=== PATIENT | male | born 1940 | race Caucasian/White ===

== ENCOUNTER 2022-02-27 17:23 | Emergency (ER) | payer BC, SELFPAY ==
[2022-02-27 17:31] VITALS: BP 153/95; PULSE 109; RESP 22; TEMP 36.4; O2SAT 94; BMI 27.8
--- NOTE | 2022-02-27 17:42 | ED.NURSE ---
did place #16 fr salazar catheter and had egress of 750 ml of urine. was obviously uncomfortable and was unable to sit. relief after the catheter was placed..
--- NOTE | 2022-02-27 17:52 | ED_ITS ---
HPI - Male Genitourinary General Chief complaint: Urogenital Problems, Male Stated complaint: Needs to pee but can't Time Seen by Provider: 02/27/22 17:42 History of Present Illness HPI Narrative: This 81-year-old male comes in with acute urinary retention. He was driving with his from [place] to visit his daughter in [facility]. He had difficulty passing urine at about noon today, 6 hours prior to arrival. Since then he has had frequent urges to pass urine but was unable to do so. He comes in with acute urinary retention and states that this is not happened in the past except when he was coming out of a shoulder surgery anesthesia. Related Data Home Medications Medication Instructions Recorded Confirmed acetaminophen 500 mg tablet 1,000 mg PO Q4H PRN 02/27/22 02/27/22 (Tylenol Extra Strength) amlodipine 5 mg tablet 5 mg PO DAILY 02/27/22 02/27/22 apixaban 5 mg tablet (Eliquis) 5 mg PO BID 02/27/22 02/27/22 aspirin 81 mg tablet,delayed 81 mg PO DAILY 02/27/22 02/27/22 release atorvastatin 40 mg tablet 40 mg PO DAILY 02/27/22 02/27/22 calcium carbonate 600 mg calcium 600 mg PO DAILY 02/27/22 02/27/22 (1,500 mg) tablet (Calcium) cetirizine 10 mg capsule (All Day 10 mg PO DAILY PRN 02/27/22 02/27/22 Allergy (cetirizine)) ezetimibe 10 mg tablet 10 mg PO DAILY 02/27/22 02/27/22 fluticasone fur. 200 mcg-umeclid 1 inh inhalation DAILY 02/27/22 02/27/22 62.5 mcg-vilant 25 mcg inhalat.powder (Trelegy Ellipta) fluticasone propionate 50 1 spray intranasal DAILY PRN 02/27/22 02/27/22 mcg/actuation nasal spray,suspension (Flonase Allergy Relief) metoprolol tartrate 75 mg tablet 75 mg PO DAILY 02/27/22 02/27/22 nitroglycerin 0.4 mg sublingual 0.4 mg sublingual Q5-15M PRN 02/27/22 02/27/22 tablet omeprazole 20 mg tablet,delayed 20 mg PO DAILY 02/27/22 02/27/22 release tamsulosin 0.4 mg capsule (Flomax) 0.4 mg PO DAILY 02/27/22 02/27/22 Allergies Allergy/AdvReac Type Severity Reaction Status Date / Time lisinopril Allergy Verified 02/27/22 17:36 Penicillins Allergy Verified 02/27/22 17:36 Review of Systems Status of ROS: Reports: 10 or more systems reviewed and unremarkable except as noted in History and below Narrative: Constitutional: No fevers, no weight gain or loss. Eyes: No discharge. No vision changes. HENT: He does report some nasal congestion and occasional cough. Cardiovascular: No chest pain, no palpitations. Respiratory: No shortness of breath, no wheezes, no cough. Gastrointestinal: No abdominal pain, no vomiting, no diarrhea. Genitourinary: Urinary retention as described above. Musculoskeletal: Normal range of motion. Skin: No rashes, no pruritis. Neurological: No dizziness, weakness, sensory change, speech change. Endo/Heme/Allergies: No bruising or bleeding. No polydipsia. Pysch: no suicidality, no anxiety, no insomnia. All other systems reviewed and are negative. PFSH PFS Social History Smoking Status: Former smoker Do you use any of these nicotine containing products: None Second hand tobacco smoke exposure: No How often do you have a drink containing alcohol: 4 or more times a week How many standard drinks containing alcohol do you have on a typical day: 1 or 2 How often do you have six or more drinks on one occasion: Never AUDIT-C Alcohol total score: 4 Non-prescribed substance use: denies use Exam Narrative: Exam Narrative: Constitutional: Well-developed, well-nourished, no acute distress. HEENT: Normocephalic, atraumatic. Neck: Normal range of motion. Nontender. Supple. Heart: Regular. No murmurs. Normal rate. Intact distal pulses. Lungs: Clear to auscultation. No chest discomfort. No wheezes, rhonchi, or rales. Abdomen: Normal bowel sounds. Distended in the lower abdomen. Mild tenderness. No rebound tenderness. Genitalia: Deferred. Back: No midline tenderness. Normal range of motion. Extremities: Normal range of motion. No injury. Skin: Intact. No rash. Warm. No erythema or pallor. Neurologic: No altered sensation. No weakness. Alert and oriented. Psychiatric: No suicidality. No anxiety or depression. No insomnia. Nursing notes and vitals signs are reviewed. Const: Vital Signs, click to edit/add: Vital Signs - 24 hr 02/27/22 17:31 Temperature 97.6 F Pulse Rate [Pulse Oximeter] 109 H Respiratory Rate 22 Blood Pressure [Ri ght Upper Arm] 153/95 H Pulse Oximetry 94 Oxygen Delivery Me thod Room Air Course Vital Signs Vital signs: Initial Vital Signs Temperature 97.6 F 02/27/22 17:31 Temperature Source Temporal Artery Scan 02/27/22 17:31 Pulse Rate 109 H 02/27/22 17:31 Pulse Rhythm 02/27/22 17:31 Respiratory Rate 22 02/27/22 17:31 Blood Pressure 153/95 H 02/27/22 17:31 Blood Pressure Mean 114 02/27/22 17:31 Blood Pressure Position Standing 02/27/22 17:31 Pulse Oximetry 94 02/27/22 17:31 Oxygen Delivery Method 02/27/22 17:31 Vital Signs Temperature 97.6 F 02/27/22 17:31 Pulse Rate 109 H 02/27/22 17:31 Respiratory Rate 22 02/27/22 17:31 Blood Pressure 153/95 H 02/27/22 17:31 Pulse Oximetry 94 02/27/22 17:31 Oxygen Delivery Method 02/27/22 17:31 Temperature 97.6 F 02/27/22 17:31 Pulse Rate 109 H 02/27/22 17:31 Respiratory Rate 22 02/27/22 17:31 Blood Pressure 153/95 H 02/27/22 17:31 Pulse Oximetry 94 02/27/22 17:31 Oxygen Delivery Method 02/27/22 17:31 MDM - Male Genitourinary MDM Narrative Medical decision making narrative: This patient comes in with urinary retention. A Cook catheter was placed which she will that approximately a L of urine. Urinalysis returns with some microscopic hematuria but no evidence of infection. The catheter was left in place and the patient is fitted with a leg bag. He is encouraged to finish is trach to his daughter's place in [place]. He can go to a clinic or urgent care there to have the catheter removed. Lab Data Labs: Lab Results 02/27/22 Range/Units 17:43 Urine Color Yellow (Yellow) Urine Appearance Slightly Cloudy A (Clear) Urine pH 7.0 (5.0-8.5) Ur Specific Lindsay 1.015 (1.000-1.030) Urine Protein Negative (Negative) Urine Glucose (UA) Negative (Negative) Urine Ketones Negative (Negative) Urine Blood 2+ A (Negative) Urine Nitrite Negative (Negative) Urine Bilirubin Negative (Negative) Urine Urobilinogen 0.2 (0.2-1.0) Ur Leukocyte Esterase Negative (Negative) Urine RBC 10-25 A (0-2) Urine WBC 0-2 (0-5) Ur Squamous Epith Cells None (None-Few) Urine Bacteria None (None) Discharge Plan Discharge Clinical Impression: Acute retention of urine Patient Disposition: Home, Self-Care Condition: Improved Additional Instructions: Keep Cook catheter in place. Follow-up with clinic urgent care for removal in 2-3 days. Prescriptions: No Action amlodipine 5 mg tablet 5 mg PO DAILY atorvastatin 40 mg tablet 40 mg PO DAILY All Day Allergy (cetirizine) 10 mg capsule 10 mg PO DAILY PRN calcium carbonate [Calcium 600] 600 mg calcium (1,500 mg) tablet 600 mg PO DAILY aspirin 81 mg tablet,delayed release (DR/EC) 81 mg PO DAILY Eliquis 5 mg tablet 5 mg PO BID ezetimibe 10 mg tablet 10 mg PO DAILY fluticasone propionate [Flonase Allergy Relief] 50 mcg/actuation spray,suspension 1 spray intranasal DAILY PRN Rx Instructions: administer into each nostril metoprolol tartrate 75 mg tablet 75 mg PO DAILY omeprazole 20 mg tablet,delayed release (DR/EC) 20 mg PO DAILY nitroglycerin 0.4 mg tablet, sublingual 0.4 mg sublingual Q5-15M PRN Rx Instructions: do not exceed 3 doses per episode tamsulosin [Flomax] 0.4 mg capsule 0.4 mg PO DAILY Trelegy Ellipta 200-62.5-25 mcg blister with device 1 inh inhalation DAILY acetaminophen [Tylenol Extra Strength] 500 mg tablet 1,000 mg PO Q4H PRN Follow Up/Referrals: Provider,Not a Local [Primary Care Provider] - Stand Alone Forms: Branch Metrics Info Instructions
[2022-02-27 18:14] LABS: Appearance Urine Slightly Cloudy (Clear); Bilirubin Urine Negative (Negative); Blood Urine 2+ (Negative); Color Urine Yellow (Yellow); Glucose Urine Negative (Negative); Ketones Urine Negative (Negative); Leukocyte Esterase Urine Negative (Negative); Nitrite Urine Negative (Negative); Protein Urine Negative (Negative); Specific Gravity Urine 1.015 (1.000-1.030); Urobilinogen Urine 0.2 (0.2-1.0)
[2022-02-27 18:39] LABS: WBC Urine 0-2 (0-5)
== END 2022-02-27 19:26 | disposition home or self-care (01) ==
PROVIDERS: Emergency Provider Emergency Medicine Emergency Medical Services
DX: R33.9 Retention of urine, unspecified (principal)
CPT/HCPCS: 51702; 81001; 99284